=== PATIENT | male | born 1950 | race Caucasian/White ===

== ENCOUNTER 2016-12-12 21:42 | Emergency (ER) | payer MEDICARE ==
[~2016-12-12] VITALS: Ht 182.9 cm; Wt 111.4 kg
[2016-12-12 21:53] VITALS: BP 163/92; PULSE 75; RESP 16; O2SAT 96
--- NOTE | 2016-12-12 22:26 | ED.REPORT ---
HPI-General Illness Date of Service Dec 12, 2016 ED Provider: Ezekiel Cross DO A 66 year old male with a history of hypertension is referred to the ED by his PCP due to abnormal lab results. The pt was contacted by his PCP today and instructed to come to the ED because his potassium levels from a recent blood draw were abnormally high. The blood used in the lab tests, however, was hemolyzed. Nursing Notes Stated Complaint: BRADYCARDIA Chief Complaint: General Complaint Nursing Notes Reviewed: Yes Allergies: Coded Allergies: No Known Allergies (Unverified , 12/12/16) General Time Seen by MD: 22:25 Chief Complaint Other (Abnormal lab result) Hx Obtained From: Patient Arrived By: Walk-in Sudden in Onset?: No Recent Healthcare: No recent hospitalization, Recent doctor visit Similar Sx Previous: No Past Medical History Past Medical History hypertension Past Surgical History gastric knee surgery Reports: Appendectomy Smoking History Unknown if Ever Smoker Social History Drug Use: THC (quit one year ago) Ambulatory Status Independent Review of Systems abnormal lab results Full Review of Systems Constitutional: Denies: Fever Respiratory: Denies: Non-productive cough, Shortness of breath Cardiovascular: Denies: Chest pain GI: Denies: Abdominal pain Skin: Denies Rash Complete sys rev & neg: except as marked. Physical Exam Vital Signs Vital Signs Date Time Temp Pulse Resp B/P Pulse Ox O2 Delivery O2 Flow Rate FiO2 12/13/16 00:00 36.7 79 17 122/87 95 Room Air 12/12/16 23:41 36.7 79 17 122/87 95 Room Air 12/12/16 21:53 37.2 75 16 163/92 96 Room Air Initial VS: Reviewed General/Constitutional: Awake, Alert Head / Eyes: Atraumatic, Normocephalic, PERRL, EOMI ENT: Atraumatic, Airway patent, Mucous membranes moist Neck: Atraumatic, Supple, Full range of motion Respiratory / Chest: Atraumatic, No respiratory distress Cardiovascular: Heart rate NL Abdomen: Atraumatic Back: Atraumatic, Full range of motion Upper Extremities Upper Extremity / MS: Atraumatic, Full range of motion Lower Extremity / Pelvis / MS: Atraumatic, Full range of motion Skin: Atraumatic, Color NL, No rash, Warm, Dry Neurologic: Oriented X3, Speech NL, No motor deficits, No sensory deficits Psychiatric: Affect NL, Mood NL Interpretation & Diagnostics Lab Results Interpretation Result Diagram: 12/12/16222812/12/162228 Test 12/12/16 22:29 White Blood Count 6.9th/mm3 (3.8-10.1) Red Blood Count 5.11mil/mm3 (4.40-5.80) Hemoglobin 16.2g/dL (13.8-17.2) Hematocrit 45.3% (41.0-50.0) Mean Corpuscular Volume 88.6fL (81-100) Mean Corpuscular Hemoglobin 31.7pg (27.0-35.0) Mean Corpuscular Hemoglobin Concent 35.8% (32.0-37.0) Red Cell Distribution Width 12.8% (12.3-15.4) Platelet Count 196bil/L (150-400) Neutrophils (%) (Auto) 53.4% (40-74) Lymphocytes (%) (Auto) 34.7% (14-46) Monocytes (%) (Auto) 7.5% (4-12) Eosinophils (%) (Auto) 3.6% (0-5) Basophils (%) (Auto) 0.7% (0-3) Sodium Level 137mEq/L (134-144) Potassium Level 4.2mEq/L (3.5-5.2) Chloride Level 100mEq/L (97-108) Carbon Dioxide Level 21mmol/L (18-29) Blood Urea Nitrogen 31mg/dL (8-27) Creatinine 0.92mg/dL (0.76-1.27) Estimat Glomerular Filtration Rate 88mL/min (>59) Glucose Level 114mg/dL (60-99) Calcium Level 9.5mg/dL (8.5-10.1) Pulse Oximetry Interpretation Pulse Oximetry Interpretation: 96% on room air Pulse Oximetry: Pulse Ox normal ECG Interpretation ECG Interpretation: normal sinus rhythm with a rate of 80 atrial premature complex inferior infarct, old anteroseptal infarct, old Time: 22:03 Interpreted by: ED physician Re-Eval/Medical Decision Source of Hx: Old records Time of Eval: 23:49 Patient Status: Condition improved Re-Evaluation/Progress Note: Pt rechecked and informed of his ED lab results. The plan for discharge is discussed. The pt understands and agrees with the plan. All questions are addressed at this time. Counseled Regarding: Diagnosis, Lab results, Need for follow-up, When/why to return to ED Discharge & Departure Primary Impression: Abnormal laboratory test result Additional Impression: Essential tremor Disposition: Home Discharge Condition All VS Reviewed: Yes Condition: Stable Additional Instructions: Your repeat labs showed normal potassium. Keep your appointment with your needle grinder. Take your normal medications as prescribed. Follow up with your primary care physician for further evaluation. Return to the emergency department if you develop any new or worsening symptoms. Referrals: Barbara Robison MD Attestation Portions of this note were transcribed by Sakina Chavis. I, Dr. Cross personally performed the history, physical exam and medical decision-making; I reviewed and confirmed the accuracy of the information in the transcribed note. Signed by: Saurabh Gomez, 12/12/2016 and [id number]. copies to: Barbara Robison MD, Todd P DO Dec 12, 2016 22:26 SAKINA CHAVIS Dec 12, 2016 23:18
[2016-12-12 22:42] LABS: BASOPHILS % (AUTO) 0.7 % (0-3); EOSINOPHILS % (AUTO) 3.6 % (0-5); MONOCYTES % (AUTO) 7.5 % (4-12); Mean Corpuscular Hemoglobin 31.7 pg (27.0-35.0); Mean Corpuscular Volume 88.6 fL (81-100); NEUTROPHILS % (AUTO) 53.4 % (40-74); Platelet Count 196 bil/L (150-400)
[2016-12-12 23:41] VITALS: BP 122/87; PULSE 79; RESP 17; O2SAT 95
[2016-12-13] VITALS: BP 122/87; PULSE 79; RESP 17; O2SAT 95
[2017-01-29] MEDS ORDERED: LISI30TA5 PO (14:57)
[2017-01-29] MEDS ORDERED: UBID100C16 PO (14:57)
[2017-01-29] MEDS ORDERED: MAGN400T4 PO (14:57)
[2017-01-29] MEDS ORDERED: CARB1TAB14 PO (14:57)
[2017-01-29] MEDS ORDERED: OMEG1CAP56 PO (14:57)
[2017-01-29] MEDS ORDERED: ASPI-973 PO (14:57)
[2017-01-29] MEDS ORDERED: AMLO10TA3 PO (14:57)
[2017-01-29] MEDS ORDERED: SERT100T9 PO (14:57)
[2017-01-29] MEDS ORDERED: CHOL200025 PO (14:58)
[2017-01-29] MEDS ORDERED: SIMV20TA4 PO (14:58)
[2017-01-29] MEDS ORDERED: VITA150T PO (14:58)
== END 2016-12-13 00:01 | disposition home or self-care (01) ==
LOC: EDBD 21:42 → EDUNIT# 21:42 → SED 21:42
DX: G25.0 Essential tremor (principal); E87.5 Hyperkalemia; I10 Essential (primary) hypertension

== ENCOUNTER 2017-01-30 00:39 | Day surgery (SDC) | payer MEDICARE, MEDICAID ==
[~2017-01-30] VITALS: Ht 182.9 cm; Wt 117.8 kg
[2017-01-30] VITALS (16 sets, daily range): BP systolic 113–151; BP diastolic 73–106; PULSE 60–80; RESP 13–20; O2SAT 92–97
[~2017-01-30 00:39] MED LIST: AMLO10TA3 PO; ASPI-973 PO; CARB1TAB14 PO; CHOL200025 PO; LISI30TA5 PO; MAGN400T4 PO; OMEG1CAP56 PO; SERT100T9 PO; SIMV20TA4 PO; UBID100C16 PO; VITA150T PO
--- NOTE | 2017-01-30 06:00 | NUR ---
ADMISSION NOTE MALE PT ADMITTED FOR PACEMAKER INSERTION. DISCUSSED PLAN OF CARE WITH PT. SEE ADMIT AND FLOW SHEET
[2017-01-30 06:33] LABS: BASOPHILS % (AUTO) 0.5 % (0-3); EOSINOPHILS % (AUTO) 5.6 % (0-5); MONOCYTES % (AUTO) 7.6 % (4-12); Mean Corpuscular Volume 92.2 fL (81-100); NEUTROPHILS % (AUTO) 49.9 % (40-74); Platelet Count 182 bil/L (150-400)
[2017-01-30] MEDS ORDERED: CeFAZolin Inj 2 GM in IV Premix 1 EACH IV ONE (06:40)
[2017-01-30 06:46] LABS: INR 0.94 ratio
[2017-01-30] MEDS ORDERED: CARB1TAB14 PO (07:00)
[2017-01-30] MEDS ORDERED: 0.9% Sodium Chloride 250 ML ONE (07:33)
[2017-01-30] MEDS ORDERED: Bupivacaine-MPF 0.5% 30 mL Inj ONE (07:33)
[2017-01-30] MEDS ORDERED: Heparin 5,000 Units/500 mL NS Premix IV ONE (07:33)
[2017-01-30] MEDS ORDERED: fentaNYL-PF 50 mCg/mL 2 mL Inj ONE ×2 (08:06→08:33)
[2017-01-30] MEDS: 0.9% Sodium Chloride 1,000 ML IV SCH ×2 (09:38→18:09)
[2017-01-30] MEDS ORDERED: Ondansetron 2 mg/mL 2 mL Inj IVPUSH PRN (09:40)
--- NOTE | 2017-01-30 09:50 | NUR ---
POST PROCEDURE NOTE RETURNED FROM [employer] MANAGER. SEE FLOW SHEET
--- NOTE | 2017-01-30 10:26 | OP ---
[address] [address] OPERATIVE REPORT PATIENT: ERENDIRA LEVI : 1950 MR#: [id number] ADMIT: 01/30/2017 JOB ID: [id number] DATE OF SURGERY: 01/30/2017 PREOPERATIVE DIAGNOSIS(ES): Mobitz II AV block. POSTOPERATIVE DIAGNOSIS(ES): Mobitz II AV block. PROCEDURE PERFORMED: 1. Dual-chamber pacemaker implantation. 2. Fluoroscopy. SURGEON: Shaka Parsons MD, pea viner mechanic. PRENATAL NURSE: 1. Erica Hicks MD, Interventional Cardiology attending. 2. Quinn Sevilla. IMPLANTED DEVICES: 1. [employer] pulse generator, model PM227, serial #[id number]. 2. Right atrial lead [employer], [id number], 52 cm, serial #[id number]. 3. RV lead [employer], OP 1200M, 58 cm, serial #[id number]. ANESTHESIA: Bolus dosing of Versed and fentanyl were utilized for appropriate level of sedation. INDICATION: The patient is a pleasant, 66-year-old man, with a structurally normal heart and Mobitz II AV block. After discussion of the risks and benefits of pacemaker implantation, he opted to proceed. PROCEDURAL DESCRIPTION: Following informed consent, the patient was taken to the EP laboratory in a fasting nonsedated state, where he was prepped and draped in usual sterile fashion. The left infraclavicular was infiltrated with 40 cc of a 50/50 mixture of bupivacaine and lidocaine. Once an adequate level of anesthesia was achieved, a 3 cm incision was performed 2 cm below the left clavicle. Dissection was carried down to the pectoralis fascia. The pocket was then fashioned using combination of electrocautery and blunt dissection. Once adequate hemostasis had been achieved, access to the left axillary vein was gotten with a micropuncture needle twice to deploy two 0.035, 3 mm J guidewires. Over the first of these, an 8-Kazakh tear-away sheath was advanced. Once the guidewire was removed, an active fixation was advanced to the RV outflow and ultimately the RV apex. The lead was affixed in position using its associated active fixation screw. It was connected to the external analyzer and demonstrated appropriately sensed R waves, impedance, capture threshold. Lead was checked to 10 V and there was no evidence of diaphragmatic stimulation. Attention was now paid to the right atrial lead. Over the previously deployed J guidewire, another 8-Kazakh tear-away sheath was advanced. Once the guidewire was removed, an active fixation lead was advanced to the right atrial appendage. It was affixed in position using its associated fixation screw. It was connected to the external analyzer and demonstrated appropriately sensed P waves, impedance, capture threshold. Lead was checked to 10 V and there was no evidence of diaphragmatic stimulation. Once the position and redundancy of both leads were confirmed with multiple fluoroscopic views, the leads were anchored to the prepectoralis fascia using their associated anchoring sleeves and two heavy Ethibond sutures. The pocket was then copiously irrigated with antibiotic solution. The leads were connected to a generator and the generator was placed into the pocket and was affixed to the floor of the pocket using 1-0 Ti-Cron suture. The incision was then closed with running layers of absorbable suture. The wound was dressed with skin adhesive and a small dressing. At the end of procedure, the needle, sponge, and instrument counts were all correct. COMPLICATIONS: None. ESTIMATED BLOOD LOSS: Negligible. DEVICE MEASURED DATA: 1. Right atrial lead greater than 5 mV, 440 ohms, 0.5 V at 0.4 msec. 2. RV lead greater than 12 mV, 600 ohms, 0.5 V at 0.4 msec. PARAMETERS: DDDR 60-130 beats per minute. IMPRESSION: Successful dual-chamber pacemaker implantation. PLAN: 1. Stat portable chest x-ray. 2. PA and lateral chest x-ray in the morning. 3. Device interrogation. 4. IV Ancef. 5. Keflex x7 days starting tomorrow. 6. Wound check in one week. ATTENDING STATEMENT: Shaka Parsons MD, electrophysiology attending, was present for and supervised/performed all aspects of this procedure.
--- NOTE | 2017-01-30 12:00 | NUR ---
TRANSFER NOTE TO [facility]. REPORT GIVEN
--- NOTE | 2017-01-30 12:20 | NUR ---
Transfer [facility] to [facility] Patient arrived on unit via bed from [facility]. Patient alert and oriented on arrival. Rated Lt shoulder pain at 3/10. Ice was present on Lt shoulder. Dressing showing minimal drainage, sling placed to Lt arm. Patient denied nausea, chest discomfort, sob. Up to bathroom with stand by assist. Tolerating food/drink without upset. Refused offered pain medication on arrival. "I just want a little nap".
--- NOTE | 2017-01-30 12:27 | DRSVH ---
PROCEDURE: X-RAY CHEST ONE VIEW, PORTABLE ([id number]) INDICATIONS: For new leads placed TECHNIQUE: One view of the chest was acquired. COMPARISON: None. FINDINGS: Surgical changes and devices: Dual chamber cardiac pacer present in expected position. Lungs and pleura: No pleural effusions or pneumothorax. Lungs are clear. Mediastinum: Mediastinal contours appear normal. Heart size is normal. Bones and chest wall: No suspicious bony lesions. Overlying soft tissues appear unremarkable. Heal ed fracture deformity of the distal right clavicle. IMPRESSION: No immediate complications status post cardiac pacemaker placement. Dictated by: Nam Ellsworth [facility] Interpreted: Gilda Garcia MD on 01/30/2017 at 12:26 Transcribed by: MADELYN on 01/30/2017 at 12:26 Approved by: Gilda Garcia MD, PhD on 01/30/2017 at 13:15
[2017-01-30] MEDS: HYDROcodone-APAP 5-325 mg Tablet PO PRN ×2 (18:04→21:04)
[2017-01-30] MEDS: CeFAZolin Inj 1 GM in IV Premix 1 EACH IV SCH (18:09)
[2017-01-31] MEDS: CeFAZolin Inj 1 GM in IV Premix 1 EACH IV SCH (00:50)
[2017-01-31] MEDS: 0.9% Sodium Chloride 1,000 ML IV SCH (04:34)
[2017-01-31 06:19] VITALS: BP 143/87; PULSE 60; RESP 18; O2SAT 95
--- NOTE | 2017-01-31 06:30 | NUR ---
NOC PT has had minimal pain to pacer site. 1 vicodin given with excellent relief. Dressing has tiny amount of old drainage. No hematoma. Strong radial pulse. Pt HR is AV paced in the 60's. Up ad osiris in room. Receiving post op abx and hydration. Eager for d/c today. V/S WNL. Plan is for d/c today.
[2017-01-31] MEDS: HYDROcodone-APAP 5-325 mg Tablet PO PRN (08:13)
[2017-01-31] MEDS ORDERED: Omega-3 Fatty Acids 1,000 mg Capsule PO SCH (08:30)
[2017-01-31 08:57] VITALS: BP 168/93; PULSE 66; RESP 20; O2SAT 96
--- NOTE | 2017-01-31 09:37 | PCM.DIMED ---
Discharge Instructions Date of Service Jan 31, 2017 Dates of Hospitalization Discharge Diagnosis Discharge Diagnosis Mobitz II, 2nd Degree AV Block Hypertension Diet Heart Healthy Activity Other (Do not extend left elbow high above shoulder for one month. Do not lift , push or pull more than 10 lbs with the left arm for one month. ) Call your provider Fever or Chills, Bleeding, Excessive diarrhea Patient Instructions Follow-up in: 1 week Mid-level Provider (F9): Carlos Hubbard PA-C Follow-up with Mid-level in: 6 weeks Carlos Hubbard PA-C Jan 31, 2017 09:37
[2017-01-31] MEDS ORDERED: CEPH500C PO (10:04)
[2017-01-31] MEDS ORDERED: HYDR-4003 PO (10:05)
--- NOTE | 2017-01-31 10:37 | DRSVH ---
PROCEDURE: X-RAY CHEST, TWO VIEWS ([id number]) INDICATIONS: For new lead placement TECHNIQUE: 2 views of the chest were acquired. COMPARISON: [facility], CR, XR CHEST 1VW (PORTABLE), 01/30/2017, 10:02. FINDINGS: Surgical changes and devices: Stable left pacer. Lungs and pleura: No pleural effusions or pneumothorax. Lungs are clear. Mediastinum: Mediastinal contours are normal. Heart size is normal. Bones and chest wall: No suspicious bony abnormalities. Soft tissues appear unremarkable. IMPRESSION: Stable chest post pacer placement. Dictated by: Nam Ellsworth RR Interpreted: Vladislav Otero MD on 01/31/2017 at 10:37 Transcribed by: MARIANO on 01/31/2017 at 10:37 Approved by: Vladislav Otero M.D. on 01/31/2017 at 15:40
--- NOTE | 2017-01-31 10:37 | DIS ---
[address] [address] DISCHARGE SUMMARY PATIENT: ERENDIRA LEVI : 1950 MR#: [id number] ADMIT: 01/30/2017 JOB ID: [id number] DIS: 01/31/2017 REASON FOR ADMISSION: Pacemaker implant. CHIEF COMPLAINT: Bradycardia and fatigue. BRIEF HISTORY: The patient is a pleasant 66-year-old man with a structurally normal heart who also has hypertension and Parkinson disease. He has been found to have bradycardia resulting from intermittent Mobitz II second-degree AV block. He was advised of his indication for a pacemaker and wished to proceed. COURSE IN HOSPITAL: The patient was admitted through the [facility] and taken to the tin can laborer, where he received a dual-chamber cardiac pacemaker without incident. He was then taken back to the [facility] for recovery from sedation and then transferred up to the third floor [facility] for overnight telemetry and observation. He did well overnight and in the morning he felt well for discharge home. He was a little bit lightheaded from his pain medication but he waited until he felt well before leaving. He denied any significant site pain and was not dyspneic or near syncopal. Chest x-ray showed good lead positions and no pneumothorax. The pacer site is closed and dry and there is no significant hematoma. Device evaluation showed excellent atrial and ventricular capture and sensing thresholds. He has been paced about 84% of the time. DISPOSITION: The patient was discharged home in good condition with a follow up appointment at the [facility] office in one week. He was asked not to extend his left elbow above his shoulder for one month and to not lift, push or pull more than 10 pounds with the left arm for one month. He may shower normally tomorrow. He will follow his heart healthy diet and take medications as prescribed. DISCHARGE MEDICATIONS: 1. Cephalexin 500 mg b.i.d. 2. Hydrocodone/acetaminophen 5-325 mg, 1 tablet q.4 hours p.r.n. pain. 3. Amlodipine 10 mg daily. 4. Aspirin 81 mg daily. 5. Carbidopa/levodopa 25/100 mg 1/2 tablet in the evening and 1 tablet in the day. 6. Vitamin D3 2000 units daily. 7. Lisinopril 30 mg daily. 8. Magnesium oxide 400 mg daily. 9. [place]-3 fish oil gel cap one daily. 10. Sertraline 100 mg daily. 11. Simvastatin 20 mg q.h.s. 12. Co Q10 100 mg daily. 13. Vitamin B complex with C 150 mg daily. FINAL DIAGNOSES: 1. Intermittent Mobitz II atrioventricular block. 2. Diabetes. 3. Hypertension.
[2017-01-31 11:08] VITALS: PULSE 61
--- NOTE | 2017-01-31 12:20 | NUR ---
Discharge Patient departed unit via wheelchair, accompanied by staff. Patient alert and oriented. Discharge teaching included arm brace for Lt arm, minimal use of Lt arm and not to lift more than 10 lbs with lt arm. Patient has own vehicle in parking lot, patient to drive self home. Patient has not had narcotics or sedating mediations for more than 4 hrs. At time of discharge, patient denied shortness of breath, nausea, lightheadedness, and weakness. Patient reported 1/10 "soreness" at pacemaker site on lt chest. Discharge instructions/medications reviewed with patient prior to discharge. All questions addressed. Patient belongings, discharge instructions and prescriptions in hand.
== END 2017-01-31 12:24 | disposition home or self-care (01) ==
LOC: SOUO 00:39 → MPC 12:11 → SOUO 01-31 12:24
PROVIDERS: ATTEND Internal Medicine Cardiovascular Disease
DX: I44.1 Atrioventricular block, second degree (principal); I10 Essential (primary) hypertension; E78.5 Hyperlipidemia, unspecified; E29.1 Testicular hypofunction; Z79.82 Long term (current) use of aspirin; G20 Parkinson's disease; E11.9 Type 2 diabetes mellitus without complications
CPT/HCPCS: 33208; 36415; 71010; 71020; 80048; 85025; 85610; 93005; 99152; 99153; C1769; C1785; C1892; C1898; J0131; J0690; J1644; J2250; J3010; J7030; J7050